=== PATIENT | male | born 1965 | race Two or more races ===

== ENCOUNTER 2025-06-29 10:15 | Inpatient (IN) | payer OTHER ==
[~2025-06-29] VITALS: Ht 165.1 cm; Wt 72.6 kg
[2025-06-29 13:03] VITALS: BP 128/65
[2025-07-03] MEDS ORDERED: CEFTRIAXONE SODIUM 2,000 MG VIAL ONE (08:11)
[2025-07-03] MEDS ORDERED: METRONIDAZOLE/SODIUM CHLORIDE 500 MG/100 ML PIGGYBACK IV ONE (08:11)
[2025-07-03] MEDS ORDERED: HEMOSTATIC MATRIX 1 KIT KIT TOP ONE (08:58)
[2025-07-03] MEDS ORDERED: LIDOCAINE HCL 1%/EPINEPHRINE 20ML VIAL IJ ONE (08:59)
[2025-07-03] MEDS ORDERED: BUPIVACAINE HCL/Mpf 0.5% 10ML VIAL ONE (08:59)
[2025-07-03] MEDS ORDERED: POVIDONE-IODINE 118 ML BOTT TOP ONE (08:59)
[2025-07-03] MEDS ORDERED: DIBUCAINE 30 GM TUBE ONE (08:59)
[2025-07-03] MEDS ORDERED: SUGAMMADEX SODIUM 200 MG/2 ML VIAL IV ONE (10:36)
[2025-07-03] MEDS ORDERED: ONDANSETRON HCL 2 MG/ML VIAL IV PRN (10:45)
[2025-07-03] MEDS ORDERED: DEXTROSE 50 % IN WATER 0.5 G/ML DISP.SYRIN IV PRN (10:45)
[2025-07-03] MEDS ORDERED: RINGERS SOLUTION,LACTATED 1,000 ML IV SCH (10:45)
[2025-07-03] MEDS ORDERED: OxyCODONE HCL 5 MG TABLET (ROXICODONE) PO PRN (10:45)
[2025-07-03 13:39] LABS: BASO % 0.3 % (0.1-1.2); EOS # 0.10 (0.04-0.54); EOS % 1.0 % (0.7-7.0); LYMPH # 0.88 (1.18-3.74); LYMPH % 8.9 % (19.3-53.1); MEAN PLATELET VOLUME 11.30 fl (9.4-12.4); MONO # 0.48 (0.24-0.82); MONO % 4.8 % (4.7-12.5); NEUT # 8.37 (1.56-6.13); NEUT % 84.5 % (34.0-71.1); RED CELL DISTRIBUTION WIDTH 12.2 % (11.6-14.4)
[2025-07-03] MEDS ORDERED: ACETAMINOPHEN 500 MG GEL..CAP PO SCH (14:00)
[2025-07-03 14:55] LABS: BUN CREA RATIO 21.0 (7.0-25.0); CREATININE SERUM 0.62 mg/dL (0.70-1.30); GFR 131.88; GLUCOSE FASTING 131.0 mg/dL (65-100); OSMOLALITY SERUM 283.0 MOSM/KG (275-295)
[2025-07-03 16:00] VITALS: BP 125/79; O2SAT 95
[2025-07-03] MEDS ORDERED: GABAPENTIN 300 MG CAPSULE PO SCH (17:00)
[2025-07-03] MEDS ORDERED: FAMOTIDINE/PF 20 MG/2 ML VIAL IV PUSH SCH (21:00)
[2025-07-04 01:06] VITALS: BP 95/46; O2SAT 94
[2025-07-04 02:20] VITALS: BP 117/71; O2SAT 97
[2025-07-04 07:35] LABS: BASO % 0.3 % (0.1-1.2); EOS # 0.18 (0.04-0.54); EOS % 1.8 % (0.7-7.0); LYMPH # 1.19 (1.18-3.74); LYMPH % 11.7 % (19.3-53.1); MEAN PLATELET VOLUME 11.90 fl (9.4-12.4); MONO # 0.78 (0.24-0.82); MONO % 7.7 % (4.7-12.5); NEUT # 7.97 (1.56-6.13); NEUT % 78.2 % (34.0-71.1); RED CELL DISTRIBUTION WIDTH 12.5 % (11.6-14.4)
[2025-07-04 08:00] VITALS: BP 113/71; O2SAT 96
[2025-07-04 08:05] LABS: BUN CREA RATIO 15.0 (7.0-25.0); CREATININE SERUM 0.52 mg/dL (0.70-1.30); GFR 161.56; GLUCOSE FASTING 100.0 mg/dL (65-100); OSMOLALITY SERUM 285.0 MOSM/KG (275-295)
[2025-07-04] MEDS ORDERED: TRAM1TAB98 PO ×2 (11:03)
[2025-07-04] MEDS ORDERED: PEPCID AC20 MG PO ×2 (11:03)
[2025-07-04] MEDS ORDERED: ENOXAPARIN SODIUM 40 MG/0.4 ML SYRINGE SUBCUTANEO SCH (17:00)
[2025-07-05] MEDS ORDERED: ENOXAPARIN SODIUM 40 MG/0.4 ML SYRINGE SUBCUTANEO SCH (09:00)
== END 2025-07-04 13:59 | disposition home or self-care (01) | DRG 349 ==
LOC: O/R 07-03 07:00 → SURG 07-03 10:00 → SURH 07-03 13:15
PROVIDERS: ADMIT Surgery; ATTEND Surgery
PROC: 0DBP7ZZ Excision of Rectum, Via Natural or Artificial Opening (ICD-10-PCS; principal; 2025-07-03 10:00)
DX: D12.8 Benign neoplasm of rectum (principal); K62.82 Dysplasia of anus

== ENCOUNTER 2025-07-05 17:02 | Emergency (ER) | payer OTHER ==
[~2025-07-05] VITALS: Ht 165.1 cm; Wt 77.1 kg
[~2025-07-05 17:02] MED LIST: PEPCID AC20 MG PO; TRAM1TAB98 PO
[2025-07-05] MEDS ORDERED: ACETAMINOPHEN 500 MG GEL..CAP PO ONE ×2 (17:52→18:00)
[2025-07-05 18:40] LABS: BASO % 0.3 % (0.1-1.2); EOS # 0.23 (0.04-0.54); EOS % 2.4 % (0.7-7.0); LYMPH # 1.30 (1.18-3.74); LYMPH % 13.6 % (19.3-53.1); MEAN PLATELET VOLUME 11.60 fl (9.4-12.4); MONO # 0.57 (0.24-0.82); MONO % 6.0 % (4.7-12.5); NEUT # 7.37 (1.56-6.13); NEUT % 77.4 % (34.0-71.1); RED CELL DISTRIBUTION WIDTH 12.2 % (11.6-14.4)
[2025-07-05 19:02] LABS: INR 1.15
[2025-07-05 19:04] LABS: ALT/SGPT 20.0 U/L (12-78); AST/SGOT 12.0 U/L (15-37); BILIRUBIN TOTAL 0.7 mg/dL (0.3-1.2); BUN CREA RATIO 12.0 (7.0-25.0); CREATININE SERUM 0.77 mg/dL (0.70-1.30); GFR 102.71; GLOBULINA 3.5 G/DL (2.4-3.5); OSMOLALITY SERUM 288.0 MOSM/KG (275-295)
[2025-07-05 19:07] LABS: GLUCOSE FASTING 216.0 mg/dL (65-100)
== END 2025-07-05 22:20 | disposition home or self-care (01) ==
LOC: ER 17:03
PROVIDERS: General Practice
DX: K62.5 Hemorrhage of anus and rectum (principal); Z98.890 Other specified postprocedural states